=== PATIENT | female | born 2000 | race African-American/Black ===

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

== ENCOUNTER 2020-03-30 14:18 | Emergency (ER) | payer OTHER, SELFPAY ==
[2020-03-30 14:20] VITALS: BP 142/96; PULSE 103; RESP 18; TEMP 36.2; O2SAT 99; BMI 43.8
--- NOTE | 2020-03-30 14:34 | ED.VIS.GEN ---
History of Present Illness Chief Complaint: Sore Throat Narrative: Patient is an otherwise healthy 20-year-old female who presents with a sore throat. This began a couple of days ago. She denies fever congestion or rhinorrhea. No cough. No vomiting or diarrhea. No chest pain or difficulty breathing. Her pain does radiate towards both ears. Past Medical History - Allergies and Home Meds Allergies/Adverse Reactions: Allergies No Known Allergies Allergy (Verified 03/30/20 14:20) Primary Care Physician: Noah Mcmahon DO [Primary Care Provider] - Past Medical History: - - Asthma Smoking Status: Never smoker Review of Systems All systems negative except as indicated General: Denies: Fever ENT: Reports: Sore throat. Denies: Bilateral ear pain, Rhinorrhea Cardiovascular: Denies: Chest pain Respiratory: Denies: Dyspnea, Cough Gastrointestinal: Denies: Nausea, Vomiting, Diarrhea Musculoskeletal: Denies: Myalgias, Arthralgias Skin: Denies: Rash Neurological: Denies: Headache Physical Exam Vital Signs/Narrative: Vital Signs Temp Pulse Resp BP Pulse Ox 03/30/20 14:20 97.1 F L 103 H 18 142/96 H 99 Inital Vital Signs reviewed: Yes General: Well nourished Head: Normocephalic Eyes: EOMI ENT: - - Patient has posterior oropharyngeal erythema with symmetric bilateral tonsillar enlargement, uvula is midline, airway is patent, clear speech, no trismus Neck: Supple, - - Patient has tender anterior cervical lymphadenopathy Cardiovascular: Regular rate, Regular rhythm Respiratory: No distress Abdomen: Soft Skin: Normal color Neurological: Alert Psychological: Normal affect Diagnostic/Tx/Re-eval 03/30/20 14:40 Mucosa - Throat Group A Streptococcus Rapid Screen - Preliminary - Medical Decision Making Rapid strep is negative. Culture to follow. Patient advised on supportive care. She was given a dose of Decadron here to help with pain and swelling. She does understand return for new or worsening symptoms and was advised on specific signs and symptoms to monitor for. Patient is discharged. ED Disposition - Plan for ED Patient: Disposition: Home or Assisted Living Diagnosis: Pharyngitis Instructions: ED Pharyngitis Viral Referrals: Noah Mcmahon DO [Primary Care Provider] -
[2020-03-30] MEDS: dexAMETHasone 4 MG Tablet 8 MG PO (15:14)
[2020-03-30 15:15] VITALS: RESP 17
== END 2020-03-30 15:42 | disposition home or self-care (01) ==
PROVIDERS: Emergency Medicine; Emergency Provider Emergency Medicine; PCP Pediatrics
DX: J02.9 Acute pharyngitis, unspecified (principal); J45.909 Unspecified asthma, uncomplicated; H92.03 Otalgia, bilateral
CPT/HCPCS: 87635; 87880; 99283; A4216; U0003

== ENCOUNTER → 2020-05-17 15:10 | Outpatient (CLI) | payer BC, OTHER, SELFPAY | PROVIDERS: PCP Pediatrics; Referring Provider Otolaryngology; Visit Provider Otolaryngology | DX: J03.90 Acute tonsillitis, unspecified (principal) | CPT/HCPCS: 87070; 87077 ==

== ENCOUNTER 2020-07-18 15:34 | Emergency (ER) | payer BC, OTHER, SELFPAY ==
[2020-07-18 15:37] VITALS: BP 159/106; PULSE 87; RESP 20; TEMP 36.6; O2SAT 100; BMI 42.3
[2020-07-18 15:46] VITALS: PULSE 84; RESP 14; O2SAT 98
--- NOTE | 2020-07-18 16:42 | ED.VIS.GEN ---
History of Present Illness Chief Complaint: Sore Throat Informant: Patient Onset: Days Context: Sudden Onset Timing: Continuous Quality: Pain Location: Throat Current Severity: Mild Maximum Severity: Moderate Worsened by: Swallowing Relieved by: Nothing Associated Symptoms: No fever or chills no rhinorrhea and no cough history of recurrent tonsilli Narrative: 20-year-old female who presents with sore throat for the past 2 to 3 days. She denies fever, chills, rhinorrhea, congestion or cough. She is scheduled to see Dr. Fabio Hdez on August 05. She states her tonsils will be removed at that time. She denies drooling. She denies change in voice. She denies history rheumatic fever, heart murmur, SBE or mitral valve prolapse. She denies ocular, visual or auditory symptoms. She denies rash. She denies GI symptoms. Prior similar symptoms: Yes Recent Illness/Hospitalization: Yes - Past Medical History (1) Recurrent tonsillitis Status: Acute Past Medical History - Allergies and Home Meds Allergies/Adverse Reactions: Allergies steroid Allergy (Uncoded 07/18/20 15:37) [facility] Primary Care Physician: Noah Mcmahon DO [Primary Care Provider] - Prior records reviewed: Yes Lives: Alone Smoking Status: Never smoker Alcohol: Rare Drugs: None Review of Systems General: Denies: Chills, Fever, Malaise, Subjective Eyes: Denies: Visual changes - bilaterally, Blurred Vision - bilaterally ENT: Reports: Bilateral ear pain, Sore throat, - - Muffled voice or drooling. Denies: Rhinorrhea Cardiovascular: Denies: Chest pain, Palpitations Respiratory: Denies: Dyspnea, Cough, Dyspnea on exertion Gastrointestinal: Denies: Abdominal pain, Nausea, Vomiting, Diarrhea Musculoskeletal: Denies: Myalgias, Arthralgias, Neck pain, Back pain Skin: Denies: Rash Neurological: Denies: Headache, Weakness Allergy: Denies: Uticaria, Swelling of the mouth, Swelling of the tongue Physical Exam Vital Signs/Narrative: Vital Signs Temp Pulse Resp BP Pulse Ox 07/18/20 15:46 84 14 98 07/18/20 15:37 98 F 87 20 H 159/106 H 100 Inital Vital Signs reviewed: Yes General: Well nourished, Well developed, Obese, No Acute Distress Head: Normocephalic, Atraumatic Eyes: Perrl, EOMI, Pale conjunctiva, Scleral icterus ENT: Moist mucous membranes, No rhinorrhea, TM's clear, - - Cells are enlarged with exudate noted. Neck: Supple, Nontender, No lymphadenopathy, No JVD Cardiovascular: Regular rate, Regular rhythm, No murmurs, Normal S1, Normal S2 Respiratory: No distress, CTA bilaterally, Chest nontender Abdomen: Soft, Nontender, Nondistended, Normal bowel sounds Skin: Normal color, No rash, No Trauma. Negative for: Cyanosis, Diaphoresis, Jaundice Neurological: Alert, Oriented x3, Cranial nerves II-XII grossly intact, Normal Strength, Normal Sensation Psychological: Normal affect, Normal Mood Diagnostic/Tx/Re-eval 07/18/20 15:59 Mucosa - Throat Group A Streptococcus Rapid Screen - Preliminary - Medical Decision Making She has tonsillitis and Centor score of 1. Rapid strep was obtained. Rapid strep is positive we will treat with antibiotics otherwise will treat symptomatically. Strep is negative per the CDC recommendation and the [employer] infectious disease she will be treated symptomatically and no antibiotics. ED Disposition - Plan for ED Patient: Disposition: Home or Assisted Living Diagnosis: Exudative tonsillitis Instructions: ED Tonsillitis Referrals: Noah Mcmahon DO [Primary Care Provider] - As Needed Additional Instructions: 1. Keep appointment with Dr. Fabio Hdez for tonsillectomy 2. Salt water gargles 6-8 times a day 3. Chloraseptic spray or Cepastat lozenges for discomfort.
[2020-07-18 17:45] VITALS: BP 108/77; PULSE 62; RESP 15; O2SAT 99
== END 2020-07-18 17:46 | disposition home or self-care (01) ==
PROVIDERS: Emergency Provider Emergency Medicine; PCP Pediatrics
DX: J03.90 Acute tonsillitis, unspecified (principal); Z88.8 Allergy status to other drugs, medicaments and biological substances
CPT/HCPCS: 87880; 99282

== ENCOUNTER → 2020-07-31 14:24 | Outpatient (CLI) | payer BC, OTHER, SELFPAY ==
[2020-07-18 15:37] VITALS: BMI 42.3
== END ==
PROVIDERS: PCP Pediatrics; Referring Provider Otolaryngology; Visit Provider Otolaryngology
DX: Z11.59 Encounter for screening for other viral diseases (principal)
CPT/HCPCS: 87635; C9803; U0002; U0003

== ENCOUNTER → 2020-08-05 15:09 | Outpatient (CLI) | payer BC, OTHER, SELFPAY ==
[2020-07-18 15:37] VITALS: BMI 42.3
--- NOTE | 2020-08-05 08:20 | TONS_PTH ---
PATIENT: IZZY CLAY LOC: [facility] U#:[id number] AGE/SX: 25/F ROOM: RE08/05/[address]: Dr. Fabio Corrales MD : 2000 BED: DIS: SPEC #: [id number] RECD: 08/05/20 15:04 STATUS: JANELLE DALLIN #: [id number] LEIGHANN: 08/05/20 08:[address]: Fabio Corrales DEPT: SURGICAL PATHOLOGY RECD BY: [place] Gentile ENTERED: 08/06/20 07:51 SP TYPE: TONSILS OTHR DR: Dr. Noah Mcmahon, [facility] Tissues: Tonsil, NOS Procedures: Surgery Specimen Level III HEADER OPERATION: Tonsillectomy PRE-OP DIAGNOSIS: Chronic tonsillitis, hypertrophy of tonsils TISSUE SUBMITTED: Tonsils (right pinned) MICROSCOPIC DIAGNOSIS Bilateral tonsils, tonsillectomy: Reactive lymphoid hyperplasia, consistent with chronic tonsillitis. Focal actinomyces colonization. SJ:marine 08/07/2020 MICROSCOPIC DESCRIPTION Slides are reviewed. GROSS DESCRIPTION Received is one container labeled with the patient's name and designated tonsils - pin on right are two tonsils that in aggregate weigh 13.1 gm. The right tonsil has a pin on it and measures 3.3 x 2.2 x 1.8 cm. The left tonsil measures 4 x 2.5 x 2 cm. Both tonsils are similar in appearance. The external surfaces are pink-duque, smooth, glistening and somewhat lobulated. Focally they are hemorrhagic, granular and bear cautery artifact. Serial cross sections through the tonsils reveal normal tonsillar architecture. Sections are submitted in two cassettes as follows: 1 - right tonsil, 2 - left tonsil. / Shirley 08/06/20 TC:3 CPT: 41170 x2
== END ==
PROVIDERS: PCP Pediatrics; Referring Provider Otolaryngology; Visit Provider Otolaryngology
DX: J35.01 Chronic tonsillitis (principal)
CPT/HCPCS: 88304

== ENCOUNTER 2024-08-27 09:37 | Emergency (ER) | payer OTHER, MEDICAID, SELFPAY ==
[2024-08-27 09:37] VITALS: BP 132/92; PULSE 89; RESP 14; TEMP 36.6; O2SAT 98
--- NOTE | 2024-08-27 10:48 | EDS_ITS ---
HPI History of Present Illness Chief Complaint: Constipation [facility] Medical History (Updated 08/27/24 @ 10:03 by Melissa Adan) Constipation Home Medications ?Medication ?Instructions ?Recorded ?Last Taken ?Type NK 03/30/20 Unknown History Allergy/AdvReac Type Severity Reaction Status Date / Time Corticosteroids Allergy Hives Verified 08/27/24 09:37 (Glucocorticoids) (steroids) Social History Smoking Status: Never smoker EXAM Physical Exam Const Vital Signs: 08/27/24 09:37 Temperature 98 F Temperature Source Temporal Pulse Rate 89 Respiratory Rate 14 Blood Pressure 132/92 H Blood Pressure Mean 105 Pulse Ox 98 Oxygen Delivery Method Room Air [facility] MDM MDM Narrative Medical decision making narrative: HISTORY OF PRESENT ILLNESS: Chief complaint: Constipation 24-year-old female who is approximately weeks she is constipated. Last bowel movement is unknown. Thinks maybe 7 to 10 days ago. Before she was she would typically bowel movement daily. Denies chest pain, shortness of breath. Notes in her pregnancies had issues with nausea and vomiting and she was recent prescribed Reglan which is improved this problem. No recent vomiting. No diarrhea. No vaginal bleeding or discharge. No hanh abdominal pain REVIEW OF SYSTEMS: Pertinent positives: Constipation Pertinent negatives: New vomiting, diarrhea, abdominal pain, fevers PHYSICAL EXAM: Nursing triage notes reviewed, Vital signs reviewed Constitutional: please see [facility] HENT: MMM Eyes: Pupils equal round and reactive to light, Extraocular muscles intact Neck: No stridor, no JVD, full neck ROM Lungs: Clear to auscultation, No wheezing or rales. No increased work of breathing, no conversational dyspnea, no accessory muscle use, no nasal flaring. No respiratory distress noted Heart: Regular rate and rhythm, No murmurs, No rubs and No gallops, 2+ distal pulses (radial, femoral, posterior tibial) in all extremities Abdomen: Soft, there is no tenderness, rigidity, rebound or guarding, no obvious peritoneal signs, no palpable pulsatile abdominal masses, no auscultated abdominal bruit : No CVAT Rectal: Performed with refining machine operator nurse Melissa Present Extremities: No edema Neuro: No new focal neurological deficits, cranial nerves II through XII intact, 5/5 strength in all present extremities. Intact sensation to light touch in all present extremities, 2+ reflexes bilateral patella tendons. Skin: No rash or lesions noted MEDICAL DECISION MAKING: Chief Complaint: please see HPI External records reviewed: Reviewed prior imaging studies Factors affecting care: First trimester Social determinants of health: none History obtained from others: none Consults: none MDM Narrative: The patient was initially hemodynamically stable, afebrile and nontoxic- appearing. Exam not consistent with bowel obstruction. No vaginal bleeding or belly pain to suggest related complication. Exam without obvious stool in the rectal vault. Tried an enema and mag citrate. I considered the following differential diagnosis: Constipation Gave instructions to take bowel regimen. fiber 1 cereal. Increase fluids. Return if symptoms change or worsen. Follow-up instructions given The patient and/or family, caregivers express understanding. The patient and/or family, caregivers agrees with the plan. Shared decision making: I will have a discussion with the patient and or visitors regarding risk/b enefits of further testing or admission. They will be made aware of of the risk/benefits inherent in this decision they will be given the opportunity to voice understanding. Total critical care time today provided was at least 0 minutes. This excludes separately billable procedures. Critical care time (if documented) is secondary to the patient having high probability of clinically significant/life threatening deterioration in the patient's condition which required my urgent intervention. Impression: 1. Constipation 2. For trimester Dispo: Discharge home This note was generated with [employer] dictation software. It may contain incorrect words, spelling, and punctuation that were not noted in review of the chart prior to signing. Discharge Plan Triage Chief Complaint: Constipation ED Provider: Garth Booth Dx/Rx/DC Orders Instructions: ED Constipation (Adult) Prescriptions: No Action NK Primary Care Provider: Noah Mcmahon Referrals: Noah Mcmahon DO [Primary Care Provider] - Activity Restrictions/Additional Instructions: Thank you for trusting us with your care today! Your history and physical exam are not consistent with a bowel obstruction. Suspect you are suffering from severe constipation related to . I double checked. Reglan does not cause constipation actually an adverse effect of Reglan can be diarrhea. Please continue taking Reglan as needed for nausea vomiting control. Go to your local grocery store and obtain fiber 1 cereal. Please eat 1 bowl of fiber 1 cereal daily To increase fiber intake. Please drink more fluids. I recommend Body Armor Pedialyte or Gatorade. Water is fine as well. Please go to local pharmacy or drugstore and obtain Colace, MiraLAX and senna. Take all 3 of these medicines daily until desired consistency of stools are reached. Please take Tylenol (2 pills, 650 mg) every 6 hours as needed for pain and fever control. Please return to the emergency department if your symptoms change or worsen. Please follow with your primary care physician for further outpatient evaluation and management. Print Language: Icelandic Disposition Disposition: Home, Self Care
[2024-08-27] MEDS: Lidocaine Jelly 2% 20 ML Syringe (URO-JET) 1 APPLIC TOPICAL (11:54)
[2024-08-27] MEDS: Magnesium Citrate 300 ML PO (12:49)
== END 2024-08-27 12:51 | disposition home or self-care (01) ==
PROVIDERS: Emergency Provider Emergency Medicine; PCP Pediatrics; Visit Provider Emergency Medicine
DX: O99.611 Diseases of the digestive system complicating pregnancy, first trimester (principal); K59.00 Constipation, unspecified; Z3A.00 Weeks of gestation of pregnancy not specified
CPT/HCPCS: 99284